=== PATIENT | male | born 1970 | race Two or more races ===

== ENCOUNTER 2018-12-06 16:25 | Inpatient (IN) | payer OTHER, BC ==
[~2018-12-06] VITALS: Ht 165.1 cm; Wt 101.7 kg
[2018-12-06] MEDS ORDERED: NS(*) 0.9% 1000 ML BAG 1,000 ML IV ONE (16:32)
[2018-12-06] MEDS ORDERED: HYDROMORPHONE HCL 1 MG/ML SYRINGE IVP ONE ×3 (16:35→22:00)
[2018-12-06] MEDS ORDERED: ONDANSETRON 4 MG/2 ML VIAL IVP ONE ×2 (16:35→22:00)
[2018-12-06] MEDS ORDERED: DIPHTH/TETANUS/ACEL. PERTUSSIS IM ONE (16:35)
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
[2018-12-06 16:51] LABS: PLATELET COUNT, AUTOMATED 270 K/uL (150-450)
[2018-12-06 17:03] LABS: INR 0.96
--- NOTE | 2018-12-06 17:09 | EKG ---
FACILITY: [facility] PATIENT NAME: YULIANA BARNETT : [id number] MR: [id number] V: [id number] EXAM DATE: ORDERING PHYSICIAN: LESLIE CONRAD TECHNOLOGIST: Test Reason : Blood Pressure : / mmHG Vent. Rate : 105 BPM Atrial Rate : 105 BPM P-R Int : 146 ms QRS Dur : 076 ms QT Int : 350 ms P-R-T Axes : 050 031 059 degrees QTc Int : 462 ms Sinus tachycardia Otherwise normal ECG No previous ECGs available Confirmed by ZA SMITH ([id number]) on 12/06/2018 7:17:33 PM Referred By: Confirmed By:ZA SMITH
--- NOTE | 2018-12-06 17:28 | RADIOLOGY IMAGING REPORT ---
FACILITY: [facility] PATIENT NAME: Eusebio Carranza : 1970 MR: [id number] V: [id number] EXAM DATE: ORDERING PHYSICIAN: LESLIE CONRAD TECHNOLOGIST: Location: [facility] - [place] Patient: Eusebio Carranza : 1970 Visit/Account:[id number] Date of Sevice: 12/06/2018 Technique: CHEST SINGLE AP HISTORY: trauma COMPARISON: None available Findings: The lungs are clear. No pleural effusion. The cardiomediastinal silhouette is unremarkabl e. Impression: 1. No acute cardiopulmonary process. Report Dictated By: Isaias Hammonds DO at 12/06/2018 5:21 PM Report E-Signed By: Isaias Hammonds DO at 12/06/2018 5:23 PM WSN:[id number]
--- NOTE | 2018-12-06 17:29 | RADIOLOGY IMAGING REPORT ---
FACILITY: [facility] PATIENT NAME: Eusebio Carranza : 1970 MR: [id number] V: [id number] EXAM DATE: ORDERING PHYSICIAN: LESLIE CONRAD TECHNOLOGIST: Location: [facility] Patient: Eusebio Carranza : 1970 Visit/Account:[id number] Date of Sevice: 12/06/2018 Technique: PELVIS HISTORY: trauma Comparison studies: None FINDINGS: There is no acute fracture. No sacroiliac or pubic symphyseal diastases. The alignment of the hips are congruent. Soft tissues are unremarkable. IMPRESSION: 1. No acute osseous process. Report Dictated By: Isaias Hammonds DO at 12/06/2018 5:23 PM Report E-Signed By: Isaias Hammonds DO at 12/06/2018 5:25 PM WSN:[id number]
[2018-12-06] MEDS ORDERED: KETAMINE HCL 200 MG/20 ML MDV IVP ONE (18:10)
[2018-12-06] MEDS ORDERED: KETAMINE HCL-NS 50 MG/5 ML SYR ONE (18:12)
--- NOTE | 2018-12-06 18:46 | RADIOLOGY IMAGING REPORT ---
FACILITY: [facility] PATIENT NAME: Eusebio Carranza : 1970 MR: [id number] V: [id number] EXAM DATE: ORDERING PHYSICIAN: LESLIE CONRAD TECHNOLOGIST: Location: [facility] Patient: Eusebio Carranza : 1970 Visit/Account:[id number] Date of Sevice: 12/06/2018 EXAMINATION: Head CT without intravenous contrast HISTORY: Trauma. COMPARISON: None. TECHNIQUE: Contiguous axial images were obtained from the skull base to the vertex without intraven ous contrast. Sagittal and coronal reformatted images are also submitted. One of the following dose optimization techniques was utilized in the performance of this exam: Autom ated exposure control; adjustment of the mA and/or kV according to the patient's size; or use of an i terative reconstruction technique. Specific details can be referenced in the facility's radiology C T exam operational policy. FINDINGS: Brain and intracranial structures: Ventricles, sulci, and cisterns are normal in size. Dawkins-white m atter differentiation is maintained. There are a few small focal calcifications along the cerebral c ortex. No midline shift, acute hemorrhage, acute infarct, or mass. Calvarium / scalp: Posterior scalp hematoma. Cutaneous moncho in the posterior scalp. Debris with in the posterior parietal scalp along the midline. No acute fracture. Skull base / visualized face: Degenerative changes of the right temporomandibular joint. Visualized sinuses / orbits: Negative. IMPRESSION: No acute intracranial abnormality. Posterior scalp hematoma and debris in the posterior scalp. Report Dictated By: Clifton Osman MD at 12/06/2018 6:28 PM Report E-Signed By: Clifton Osman MD at 12/06/2018 6:42 PM WSN:[email or web address]
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
[2018-12-06] MEDS ORDERED: MORPHINE 2 MG/ML SYR IVP PRN (21:45)
[2018-12-06] MEDS ORDERED: ONDANSETRON 4 MG/2 ML VIAL IVP PRN (21:45)
--- NOTE | 2018-12-06 21:59 | RADIOLOGY IMAGING REPORT ---
FACILITY: [facility] - [place] PATIENT NAME: Eusebio Carranza : 1970 MR: [id number] V: [id number] EXAM DATE: ORDERING PHYSICIAN: LESLIE CONRAD TECHNOLOGIST: [place] [facility] [place] Eusebio Carranza : 1970 Visit/Account:[id number] Date of Sevice: 12/06/2018 INDICATION: eval for fx. DATE: 12/06/2018 9:53 PM. TECHNIQUE: CLAVICLE LEFT COMPARISON: None FINDINGS: The cylindrical lucency in the proximal left humeral shaft is favored to be from by biceps tenodesis, though this could also be an intraosseous cyst. No evidence of fracture or dislocation. Mi nimal glenohumeral degenerative findings.. IMPRESSION: No acute osseous abnormality. Report Dictated By: Suraj Taylor MD at 12/06/2018 9:53 PM Report E-Signed By: Suraj Taylor MD at 12/06/2018 9:54 PM WSN:[id number]
[2018-12-06 22:36] VITALS: BP 130/77
[2018-12-06] MEDS ORDERED: NS(*) 0.9% 500 ML BAG 500 ML IV ONE (23:05)
[2018-12-06] MEDS: GABAPENTIN 100 MG CAP PO SCH (23:54)
[2018-12-07] MEDS: KETOROLAC 15 MG/ML VIAL IVP SCH ×5 (00:01→23:15)
[2018-12-07 03:19] VITALS: BP 126/79
[2018-12-07 05:11] LABS: PLATELET COUNT, AUTOMATED 191 K/uL (150-450)
--- NOTE | 2018-12-07 06:38 | RADIOLOGY IMAGING REPORT ---
FACILITY: [facility] PATIENT NAME: Eusebio Carranza : 1970 MR: [id number] V: [id number] EXAM DATE: ORDERING PHYSICIAN: CRISTOFER HOGUE TECHNOLOGIST: Location: [facility] Patient: Eusebio Carranza : 1970 Visit/Account:[id number] Date of Sevice: 12/07/2018 Study: CHEST SINGLE AP Indication: Rib fracture Comparison study: None available Findings: AP portable chest demonstrates no evidence of acute infiltrate. There is no evidence of ple ural effusion or pneumothorax. A rib fracture is not visualized. IMPRESSION: Unremarkable exam Report Dictated By: Darin Garay at 12/07/2018 6:31 AM Report E-Signed By: Darin Garay at 12/07/2018 6:34 AM WSN:[id number]
[2018-12-07 08:46] VITALS: BP 128/77
[2018-12-07] MEDS: oxyCODON/ACET (*)5/325MG (CII) 1 TAB TAB PO PRN ×3 (08:50→20:21)
[2018-12-07] MEDS: ENOXAPARIN 40 MG/0.4ML SYR SC SCH (08:50)
[2018-12-07] MEDS: GABAPENTIN 100 MG CAP PO SCH ×3 (08:50→20:21)
[2018-12-07 10:30] VITALS: Ht 165.1 cm; Wt 101.7 kg
[2018-12-07 12:14] VITALS: BP 130/68
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
[2018-12-07 16:46] VITALS: BP 121/78
[2018-12-07 20:20] VITALS: BP 140/90
[2018-12-07 23:08] VITALS: BP 124/78
[2018-12-08 03:01] VITALS: BP 115/79
[2018-12-08] MEDS: oxyCODON/ACET (*)5/325MG (CII) 1 TAB TAB PO PRN (04:34)
[2018-12-08] MEDS: KETOROLAC 15 MG/ML VIAL IVP SCH (05:59)
[2018-12-08 07:12] VITALS: BP 135/97
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
[2018-12-08] MEDS: ENOXAPARIN 40 MG/0.4ML SYR SC SCH (09:09)
[2018-12-08] MEDS: GABAPENTIN 100 MG CAP PO SCH (09:09)
== END 2018-12-08 11:10 | disposition home or self-care (01) | DRG 552 ==
LOC: ER 17:18 → ICU 21:39
PROVIDERS: ADMIT Surgery; ATTEND Surgery
PROC: 0HQ0XZZ Repair Scalp Skin, External Approach (ICD-10-PCS; principal; 2018-12-06)
DX: S22.088A Other fracture of T11-T12 vertebra, initial encounter for closed fracture (principal); S22.42XA Multiple fractures of ribs, left side, initial encounter for closed fracture; S01.01XA Laceration without foreign body of scalp, initial encounter; E11.9 Type 2 diabetes mellitus without complications; V89.2XXA Person injured in unspecified motor-vehicle accident, traffic, initial encounter; Z23 Encounter for immunization
CPT/HCPCS: 36415; 70450; 71045; 71260; 72125; 72129; 72132; 72170; 74177; 80320; 82040; 82247; 82310; 82374; 82435; 82565; 82947; 83605; 83690; 84075; 84132; 84155; 84295; 84450; 84460; 84520; 85025; 85610; 85730; 86850; 86900; 86901; 90471; 90715; 96361; 96374; 96375; 96376; 99285; J1170; J1650; J1885; J2405; J3490; J7030; J7040; Q9967

== ENCOUNTER → 2018-12-06 | Outpatient (CLI) | payer BC ==
[2018-12-07 10:30] VITALS: BMI 37.3
== END ==
LOC: AMB 15:50
DX: R10.31 Right lower quadrant pain (principal); R10.32 Left lower quadrant pain; M54.5 Low back pain; V49.9XXA Car occupant (driver) (passenger) injured in unspecified traffic accident, initial encounter; W22.11XA Striking against or struck by driver side automobile airbag, initial encounter
CPT/HCPCS: A0425; A0427